=== PATIENT | female | born 1960 | race Caucasian/White ===

== ENCOUNTER → 2017-05-23 | Outpatient (CLI) | payer OTHER ==
[~2017-05-23] MED LIST: ACYCLOVIR 200200 MG PO; ASPIRIN EC81 M1 PO; CLONAZEPAM PO; CO Q-10100 MG PO; ESTRADIOL TRAN1 EAC2 TRANSDERM; FISHOIL PO; GLUCOSAMINE HC500 MG PO; LISINOPRIL10 MG PO; METHADONE HCL 110 M1; METHADONE HCL 110 M1 PO; METHADONE HCL5 MG PO; METOPROLOL SUCC25 M1 PO; NEURONTIN600 MG PO; NUCYNTA50 MG PO; OXYCODONE PO; PERCOCET 10-321 EACH PO; PERCOCET 7.5-31 EACH PO; PROGESTERONE100 MG PO; RED YEAST RICE600 M1 PO; TAPAZOLE5 MG PO; TOPROL XL25 MG PO; VITAMIN B-121000 MCG PO; VITAMIN D1000 UNI1 PO; VITAMIN D400 UNI1 PO; VITAMINC500 PO; VOLTAREN GEL 1100 G1 TOP; VOLTAREN GEL 1100 G2; ZANAFLEX2 M1 PO
--- NOTE | 2017-05-30 07:59 | PAINCON ---
[facility] [address] [place] [address] PAIN MANAGEMENT CONSULTATION Name: MONICA BREWER Room: [facility] DERRELL Robles#: [id number] Admission: 05/23/17 Attend Phys: Lelsie Fairchild Discharge: Date of : 58 Report #: [id number] THIS REPORT FOR: //name// CC: RODNEY Carroll HISTORY OF PRESENT ILLNESS: The patient is a very pleasant 57-year-old female being treated for cervical radiculopathy status post cervical decompressive laminectomy, neuropathic pain requiring complex medication management. Last visit 03/17/2017, we continue the patient on baseline medication. Buccal swab at that time was positive for prescribed medications and no others. The patient is an opiate consent to treat contract patient. The patient is stable on baseline medication including methadone 5 mg 1 in the morning, 2 in the afternoon and 1 at night and Percocet 5/325 up to 4 a day. This is a lower dose from prior opiate load. She is continued on tizanidine 2 mg t.i.d. for spasm. Today, we talked about trying to further wean Percocet. We may consider dropping to a 5/325 at some point. She does note that dropping from 10/325 to 7.5/325 did have a little increasing pain, but she still remains functional. Today, we did note that she has some thyroid fullness. This has been present for a while. She tells me her TSH levels are normal, but with a little fullness in the thyroid and prior history of significant cervical surgeries. We elected to repeat a cervical MRI. Last MRI appears to be about 2009. We reviewed the fact that opiate medications are being used to provide analgesia adequate to support activities of daily living, not attempting to achieve a specific pain score on the 0-10 Visual Analog Scale. The current opiate medications are providing sufficient analgesia to allow the patient to participate in activities of daily living. The patient is not exhibiting any aberrant behavior suggestive of drug diversion. The patient is not having any adverse reactions to medications. The patient is not suffering from daytime somnolence or mental acuity changes. The patient is managing opiate-induced constipation with appropriate tckx-anx-fplxvgd agents and dietary considerations. The patient was counseled on concern for caution with operating a motor vehicle while using opiate medications. A physical exam was performed and the patient's functional status was evaluated. All patients with back pain were advised against the bed rest greater than 4 days and were advised to return to normal activities. Pain score assessment was noted and the treatment plan was reviewed with the patient. All current medications, both prescribed and OTC were reviewed and reconciled on the electronic medical record. Tobacco screening was accomplished and smoking cessation was advised when indicated. BMI was noted and diet/[place] [address] PAIN MANAGEMENT CONSULTATION Name: MONICA BREWER [id number] Admission: 05/23/17 Attend Phys: Leslie Fairchild Discharge: Date of : 58 Report #: [id number] modification was recommended for all patients following outside normal parameters. I reviewed with the patient today their responsibilities to safeguard prescription medications, reviewed their responsibility to utilize medications only as prescribed by the physician. They are to seek and receive pain medications only from 1 physician group ( [facility]). They are to use 1 pharmacy and keep the clinic informed if they change pharmacies. Their responsibilities include making followup visits in a timely fashion and to avoid abrupt discontinuation of medication usage. Their responsibilities further include bringing their medications (bottles from the pharmacy with residual pills) to the visit for possible confirmation of pill counts and the patient understands it is their responsibility to submit to random drug screens to ensure both that the medications prescribed are present, and that no other controlled substances are present. All prescriptions provided today were generated electronically. ASSESSMENT: Symptomatic cervical radicular status post decompressive laminectomy, chronic pain syndrome requiring complex medication management, neuropathic pain and dysphagia. RECOMMENDATIONS: Continue current medication unchanged. MRI of the cervical spine. If the MRI is unremarkable, we may consider ultrasound of the thyroid. Discharged in good and stable condition. <ELECTRONICALLY SIGNED> By: Ran Carroll DO 05/30/17 0759 1431 [id number] Carroll DO /nt
== END ==
LOC: M.PC 04:52
DX: M54.12 Radiculopathy, cervical region (principal); G89.29 Other chronic pain; R13.10 Dysphagia, unspecified; Z79.899 Other long term (current) drug therapy

== ENCOUNTER → 2017-08-15 | Outpatient (CLI) | payer OTHER ==
--- NOTE | 2017-08-16 07:13 | PAINCON ---
[address] [address] PAIN MANAGEMENT CONSULTATION Name: MONICA BREWER Room: [facility] DERRELL Robles#: [id number] Admission: 08/15/17 Attend Phys: Leslie Fairchild Discharge: Date of : 58 Report #: [id number] THIS REPORT FOR: //name// CC: RODNEY ZAVALA Physician staff Ran Carroll DATE OF SERVICE: 08/15/2017 The patient is a 57-year-old female, long known to the pain clinic, being treated for symptomatic cervical radiculopathy status post decompressive laminectomy, neuropathic pain requiring complex medication management. Last visit, 05/23/2017, we continued the patient on methadone 5 mg 2 in the morning, 1 in the afternoon, 2 at night; Percocet 7.5/325 one tablet up to 4 times a day. This roughly equates to 145 milligram morphine equivalents. This is lowered from several years ago, in 2013 she was taking methadone 10 mg 4 a day, Percocet 10/325, 135 tablets for 30 days. With this the patient was utilizing 220 milligram morphine equivalent. Again, presently about 145 mg morphine equivalent in total. Last random drug screen, 02/28/2017, was positive for prescribed medications. The patient returns to pain clinic today. 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 She does take care of her who has had a traumatic brain injury. While he is generally physically functional, he does have some psychological issues which requires close care. The patient remains upbeat, rates her pain a 2-3 on VAS. PHYSICAL EXAMINATION: Shows 5 feet 5 inches, 127 pounds female, BMI is 21.2 kg per meter squared, blood pressure 143/73, pulse 70, respirations 16. Upper extremity strength is actually fairly preserved and symmetric, about 4-5 to all muscle groups tested. Has pain a little greater on the right side of the neck. Cervical range of motion is modestly limited, compatible with prior surgeries. Some diffuse tenderness in the right splenius capitis, no discrete trigger points noted. Gait is tandem. No myelopathic symptoms. We reviewed the fact that opiate medications are being used to provide analgesia adequate to support activities of daily living, not attempting to achieve a specific pain score on the 0-10 Visual Analog Scale. The current opiate medications are providing sufficient analgesia to allow the patient to participate in activities of daily living. The patient is not exhibiting any aberrant behavior suggestive of drug diversion. The patient is not having any adverse reactions to medications. The patient is [place] [address] PAIN MANAGEMENT CONSULTATION Name: MONICA BREWER [id number] Admission: 08/15/17 Attend Phys: Leslie Fairchild Discharge: Date of : 58 Report #: [id number] somnolence or mental acuity changes. The patient is managing opiate-induced constipation with appropriate cpij-ipj-zzepvle agents and dietary considerations. The patient was counseled on concern for caution with operating a motor vehicle while using opiate medications. A physical exam was performed and the patient's functional status was evaluated. All patients with back pain were advised against the bed rest greater than 4 days and were advised to return to normal activities. Pain score assessment was noted and the treatment plan was reviewed with the patient. All current medications, both prescribed and OTC were reviewed and reconciled on the electronic medical record. Tobacco screening was accomplished and smoking cessation was advised when indicated. BMI was noted and diet/exercise modification was recommended for all patients following outside normal parameters. I reviewed with the patient today their responsibilities to safeguard prescription medications, reviewed their responsibility to utilize medications only as prescribed by the physician. They are to seek and receive pain medications only from 1 physician group ( [facility]). They are to use 1 pharmacy and keep the clinic informed if they change pharmacies. Their responsibilities include making followup visits in a timely fashion and to avoid abrupt discontinuation of medication usage. Their responsibilities further include bringing their medications (bottles from the pharmacy with residual pills) to the visit for possible confirmation of pill counts and the patient understands it is their responsibility to submit to random drug screens to ensure both that the medications prescribed are present, and that no other controlled substances are present. All prescriptions provided today were generated electronically. ASSESSMENT: Symptomatic cervical radiculopathy status post decompressive laminectomy, neuropathic pain requiring complex medication management, stable on baseline medication. RECOMMENDATION: Continue methadone 5 mg 2 in the morning, 1 at noon, and 2 at night. Encouraged the patient to try and wean this to 4 a day, 1 in the morning, 1 at noon, and 2 at night. Continue tizanidine 2 mg t.i.d. for spasm, hydrocodone 7.5/325 one tablet 3-4 times a day, limit 100 tablets for 30 days. I did review MRI of the cervical spine, somewhat dated from 2014, does note to the ACDF at C3 through C7 with right neuroforaminal narrowing at C6-C7. She may benefit from cervical epidural injection if symptoms become problematic. She has done well with occasional epidural injections over time. [address] [place] [address] PAIN MANAGEMENT CONSULTATION Name: SHIRLEY ANTONIAMONICA Room: [facility] DERRELL Robles#: [id number] Admission: 08/15/17 Attend Phys: Leslie Fairchild Discharge: Date of : 58 Report #: [id number] Discharged in good and stable condition. Follow up in [address] Quinn Beltran. <ELECTRONICALLY SIGNED> By: Ran Carroll DO 08/16/17 0713 1450 [id number] Carroll DO /nt
== END ==
LOC: M.PC 04:04
DX: M54.12 Radiculopathy, cervical region (principal); Z79.899 Other long term (current) drug therapy

== ENCOUNTER → 2017-11-06 | Outpatient (CLI) | payer OTHER ==
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
== END ==
LOC: M.PC 04:44
DX: M54.12 Radiculopathy, cervical region (principal); M54.16 Radiculopathy, lumbar region; I10 Essential (primary) hypertension; K21.9 Gastro-esophageal reflux disease without esophagitis; G89.4 Chronic pain syndrome; M79.1 Myalgia; E05.00 Thyrotoxicosis with diffuse goiter without thyrotoxic crisis or storm; L30.9 Dermatitis, unspecified; R13.10 Dysphagia, unspecified

== ENCOUNTER → 2018-01-29 | Outpatient (CLI) | payer OTHER ==
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
== END ==
LOC: M.PC 04:35
DX: M54.12 Radiculopathy, cervical region (principal); M43.22 Fusion of spine, cervical region; M54.16 Radiculopathy, lumbar region; G89.4 Chronic pain syndrome; K21.9 Gastro-esophageal reflux disease without esophagitis; I10 Essential (primary) hypertension; R13.10 Dysphagia, unspecified; G62.9 Polyneuropathy, unspecified; L30.9 Dermatitis, unspecified; E05.00 Thyrotoxicosis with diffuse goiter without thyrotoxic crisis or storm; M79.18 Myalgia, other site

== ENCOUNTER → 2018-04-23 | Outpatient (CLI) | payer OTHER ==
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
== END ==
LOC: M.PC 08:30
DX: M54.12 Radiculopathy, cervical region (principal); M54.16 Radiculopathy, lumbar region; R13.10 Dysphagia, unspecified; M19.90 Unspecified osteoarthritis, unspecified site; I10 Essential (primary) hypertension; K21.9 Gastro-esophageal reflux disease without esophagitis; G89.4 Chronic pain syndrome; E05.00 Thyrotoxicosis with diffuse goiter without thyrotoxic crisis or storm; L30.9 Dermatitis, unspecified; J18.9 Pneumonia, unspecified organism; Z79.899 Other long term (current) drug therapy

== ENCOUNTER → 2018-07-23 | Outpatient (CLI) | payer OTHER ==
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
== END ==
LOC: M.PC 04:36
DX: M54.12 Radiculopathy, cervical region (principal); M54.16 Radiculopathy, lumbar region; M79.10 Myalgia, unspecified site; M19.90 Unspecified osteoarthritis, unspecified site; G89.4 Chronic pain syndrome; G62.9 Polyneuropathy, unspecified; I10 Essential (primary) hypertension; K21.9 Gastro-esophageal reflux disease without esophagitis; E05.00 Thyrotoxicosis with diffuse goiter without thyrotoxic crisis or storm; L30.9 Dermatitis, unspecified; R13.10 Dysphagia, unspecified; Z79.899 Other long term (current) drug therapy; Z87.01 Personal history of pneumonia (recurrent)

== ENCOUNTER → 2018-10-15 | Outpatient (CLI) | payer OTHER ==
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
== END ==
LOC: M.PC 05:03
DX: M54.12 Radiculopathy, cervical region (principal); M43.22 Fusion of spine, cervical region; M54.16 Radiculopathy, lumbar region; M19.90 Unspecified osteoarthritis, unspecified site; G62.9 Polyneuropathy, unspecified; G89.4 Chronic pain syndrome; M79.18 Myalgia, other site; R13.10 Dysphagia, unspecified; I10 Essential (primary) hypertension; K21.9 Gastro-esophageal reflux disease without esophagitis; E05.00 Thyrotoxicosis with diffuse goiter without thyrotoxic crisis or storm; L30.9 Dermatitis, unspecified; Z79.899 Other long term (current) drug therapy; Z87.01 Personal history of pneumonia (recurrent)

== ENCOUNTER → 2019-01-07 | Outpatient (CLI) | payer OTHER ==
--- NOTE | 2019-01-08 09:09 | PAINCON ---
[address] [address] PAIN MANAGEMENT CONSULTATION Name: MONICA BREWER Room: [facility] DERRELL Robles#: [id number] Admission: 01/07/19 Attend Phys: Ria Beltran MD Discharge: Date of : 58 Report #: [id number] THIS REPORT FOR: //name// CC: RODNEY Beltran DATE OF SERVICE: 01/07/2019 CHIEF COMPLAINT: Here for medication renewal. HISTORY: The patient is a 58-year-old female who has been followed in the pain clinic. As you recall, she has a history of cervical radicular problems. She has pain and is status post cervical decompression and fusion. Rates her pain today as 4/10. It involves her neck and middle back. It has been problematic for years. She feels reasonably well. She is not having a headache today. She has had headaches in the base of her skull. This oftentimes happens 4-5 times per week. She has had evaluation by her primary. She has had Graves' disease. She has been started on a medication for this. Notes that the pain is worse with activity as well as with the change in the weather. Rates it as a 4/10 today. Her has a traumatic brain injury. She continues to take care of him. 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 Generally things are going reasonably well. She has returned today for renewal of her medications. ALLERGIES: PENICILLIN, IV CONTRAST DYE. CURRENT MEDICATIONS: Vitamin C, vitamin D 1000 units, clonidine 2 mg at bedtime, vitamin B12 1000 mg, Voltaren gel 100 mg applied q.i.d., fish oil, 1000 mg, methadone 5 mg, total of 4 tablets daily, Tapazole 2.5 mg every other day, metoprolol XL 25 mg b.i.d., Percocet 7.5 mg 4 tablets daily, Nucynta 50 mg, Zanaflex 2 mg t.i.d., CoQ10. PAIN CLINIC AND PQRS: 1. The patient has some history of osteoarthritic changes in her neck. She has had four surgeries on her neck. She is not being treated for rheumatoid arthritis. 2. Height 5 feet 6 inches, weight 137 pounds, BMI is 21.8. 3. VITAL SIGNS: Blood pressure 133/72, heart rate 70, respiratory rate 18, room air saturation is 97%, temperature 98.3. 4. Pain intensity 4/10. 5. Fall history: The patient has not fallen in the last 3 months. 6. Blood thinner. The patient is not on a blood thinning medication. 7. Hypertension. The patient is being treated for hypertension. 8. Opioids greater than 6 weeks. The patient received medication from [facility], the pain clinic. 9. Risk assessment tool, low for opioid use. 10. [place] [address] PAIN MANAGEMENT CONSULTATION Name: MONICA BREWER [facility] [id number] Admission: 01/07/19 Attend Phys: Ria Beltran MD Discharge: Date of : 58 Report #: [id number] 11. Recreational drug use. The patient denies. 12. Tobacco: The patient denies. 13. Alcohol. The patient denies use of alcoholic beverages. PHYSICAL EXAMINATION: GENERAL: The patient is a well-developed, well-nourished white female. Appears her stated age. She is alert and oriented x 3. Her affect is appropriate. Speech is fluent. HEENT: Normocephalic, atraumatic. Extraocular eye muscles intact. Sclerae nonicteric. Mucous membranes are moist. NECK: Without adenopathy or JVD limited range of motion given for past surgical histories in the cervical area. EXTREMITIES: Upper extremity muscle strength judged to be 5-/5 for the major muscle groups in the upper extremity. The patient has some deep tendon reflexes +1 bilaterally at the biceps. HEART: Regular rate. S1, S2. LUNGS: Clear to auscultation without rales or rhonchi. ABDOMEN: Nontender. Bowel sounds present. MUSCULOSKELETAL: Without significant scoliosis, kyphosis or lordosis. Lower extremity muscle strength judged to be 5/5 for the major muscle groups in the lower extremity. IMPRESSION: 1. Cervical radiculopathy, status post for decompression surgeries with fusion. 2. Dysphagia. 3. History of aspiration pneumonia. 4. Lumbar radiculopathy. 5. Myofascial pain. 6. Degenerative joint disease. 7. Neuropathic pain. 8. Hypertension. 9. Gastroesophageal reflux. 10. Eczema. 11. Chronic pain syndrome. 12. Graves' disease. RECOMMENDATIONS: We discussed treatment options with the patient. At this juncture, we will continue with her medications. She has been reevaluated by her physician in regards to her Graves' disease. She feels that the opioid medications continue to be helpful. We have discussed the opioid use at this juncture. We will consider [place] [address] PAIN MANAGEMENT CONSULTATION Name: MONICA BREWER Room: [facility] DERRELL Howard.#: [id number] Admission: 01/07/19 Attend Phys: Ria Beltran MD Discharge: Date of : 58 Report #: [id number] We would like to thank you for letting us participate in her care. We hope she continues to improve. <ELECTRONICALLY SIGNED> By: Ria Beltran MD 01/08/19 0909 [id number] Beltran MD /nt
== END ==
LOC: M.PC 05:23
DX: M54.12 Radiculopathy, cervical region (principal); R13.10 Dysphagia, unspecified; M54.16 Radiculopathy, lumbar region; M79.18 Myalgia, other site; M19.90 Unspecified osteoarthritis, unspecified site; K21.9 Gastro-esophageal reflux disease without esophagitis; I10 Essential (primary) hypertension; E05.00 Thyrotoxicosis with diffuse goiter without thyrotoxic crisis or storm; G89.4 Chronic pain syndrome; Z88.0 Allergy status to penicillin; Z88.8 Allergy status to other drugs, medicaments and biological substances; Z79.899 Other long term (current) drug therapy

== ENCOUNTER → 2019-04-01 | Outpatient (CLI) | payer OTHER ==
--- NOTE | 2019-04-09 16:39 | PAINCON ---
[address] [address] PAIN MANAGEMENT CONSULTATION Name: MONICA BREWER [facility] DONALJim Robles#: [id number] Admission: 04/01/19 Attend Phys: Ria Beltran MD Discharge: Date of : 58 Report #: [id number] THIS REPORT FOR: //name// CC: ASHLEY Beltran DATE OF SERVICE: 04/01/2019 PRIMARY CARE PHYSICIAN: Dr. Ashley Peñaloza CHIEF COMPLAINT: "I have gone down on the medicine and it is still working pretty well. HISTORY: The patient is a 59-year-old female who has been followed in the pain clinic. As you recall, she has a history of cervical radicular problems. She is status post cervical decompression and fusion. She rates her pain today as a 2/10. She has had no complications. We have discussed decreasing her methadone by 5 mg daily. She has done and found that things have worked out reasonably well. She has returned today for renewal of her medications. She almost fell and felt a jerk in her body, but has had no problems with increased pain. She feels that her pain is about 50% improved with the use of medications. She notes that use of heat, medications, as well as some cold can be helpful. She has returned today for renewal of her medications. ALLERGIES: PENICILLIN AND IV CONTRAST. CURRENT MEDICATIONS: Vitamin C, vitamin D 1000 units, clonidine 2 mg at bedtime, vitamin B12 1000 mg, Voltaren gel 100 mg applied q.i.d., fish oil 100 mg, methadone 5 mg a.m. and 10 mg p.m., Tapazole 2.5 mg every other day, metoprolol XL 25 mg b.i.d., Percocet 7.5 mg 4 tablets daily, Nucynta 50 mg, Zanaflex 2 mg t.i.d., and CoQ10. PAIN CLINIC ASSESSMENT AND PQRS: 1. The patient does have some history of osteoarthritic changes in her neck. She has had four surgeries on her neck. She is not being treated for rheumatoid arthritis. 2. Height 5 feet 6 inches, weight 135 pounds, and BMI is 21. 3. Vital Signs: Blood pressure 137/72, heart rate 67, respiratory rate 16, room air saturation 98%, and temperature 98.3. 4. Pain intensity 2/10. 5. Fall history: The patient has not fallen in the last 3 months. 6. Blood thinner. The patient is not on a blood thinning medication. 7. Hypertension. The patient is being treated for hypertension. 8. Opioids greater than 6 weeks. The patient received medication from [facility] [place] [address] PAIN MANAGEMENT CONSULTATION Name: MONICA BREWER Room: [facility]#: [id number] Admission: 04/01/19 Attend Phys: Ria Beltran MD Discharge: Date of : 58 Report #: [id number] 9. Risk assessment tool, low for opioid use. 10. Functional assessment tool reviewed. 11. Recreational drug use: The patient denies. 12. Tobacco: The patient denies. 13. Alcohol: The patient denies use of alcoholic beverages. PHYSICAL EXAMINATION: GENERAL: The patient is a well-developed and well-nourished white female. Appears her stated age. She is alert and oriented x 3. Her affect is appropriate. Speech is fluent. HEENT: Normocephalic and atraumatic. Extraocular eye muscles intact. Sclerae nonicteric. Mucous membranes are moist. NECK: Without adenopathy. Some decreased range of motion, status post past surgical cervical history. EXTREMITIES: Upper extremity muscle strength judged to be 5-/5 for the major muscle groups in the upper extremities. The patient has some deep tendon reflexes +1 bilaterally. HEART: Regular rate. LUNGS: Clear to auscultation without rhonchi. ABDOMEN: Nontender. MUSCULOSKELETAL: Without significant scoliosis, kyphosis, or lordosis. Lower extremity muscle strength judged to be 5/5 for the major muscle groups in the lower extremities. IMPRESSION: 1. Cervical radiculopathy, status post surgical decompression with fusion. 2. Dysphagia. 3. History of aspiration pneumonia. 4. Lumbar radiculopathy. 5. Myofascial pain. 6. Degenerative joint disease. 7. Neuropathy/neuropathic pain. 8. Hypertension. 9. Gastroesophageal reflux. 10. Eczema. 11. Chronic pain syndrome. 12. Graves' disease. RECOMMENDATIONS: We discussed treatment options with the patient. At this juncture, we will continue with her medications. She has decreased her morphine equivalents. She decreased methadone by 5 mg daily. Overall, she feels that things are going reasonably well. Her pain today was 2/10. She reports that her pain is about 50% improved. She will continue with her medications. A script has been rewritten. She will call us if she has any concerns. The patient is aware that opioid medications can over time become less effective secondary to development of tolerance. She did not show any significant problem [address] [address] PAIN MANAGEMENT CONSULTATION Name: MONICA BREWER Room: [facility]#: [id number] Admission: 04/01/19 Attend Phys: Ria Beltran MD Discharge: Date of : 58 Report #: [id number] with tolerance. She does not have any complaints of withdrawal since she has decreased her methadone medication. We will continue with her medications. A script for her medication of methadone 5 mg 1 in the morning and 2 at night has been written. The patient will also continue with Zanaflex for muscle spasms. We would like to thank you for letting us participate in her care. We hope she continues to improve. <ELECTRONICALLY SIGNED> By: Ria Beltran MD 04/09/19 1639 [id number]. Quinn Beltran MD /nt
== END ==
LOC: M.PC 07:58
DX: M54.12 Radiculopathy, cervical region (principal); M54.16 Radiculopathy, lumbar region; R13.0 Aphagia; M79.18 Myalgia, other site; M19.90 Unspecified osteoarthritis, unspecified site; G62.9 Polyneuropathy, unspecified; I10 Essential (primary) hypertension; K21.9 Gastro-esophageal reflux disease without esophagitis; G89.4 Chronic pain syndrome

== ENCOUNTER → 2019-06-24 | Outpatient (CLI) | payer OTHER ==
--- NOTE | 2019-06-25 08:28 | PAINCON ---
[facility] [address] [place] [address] PAIN MANAGEMENT CONSULTATION Name: MONICA BREWER Room: [facility] No.Nely.#: [id number] Admission: 06/24/19 Attend Phys: Ria Beltran MD Discharge: Date of : 58 Report #: [id number] THIS REPORT FOR: //name// cc: RODNEY ZAVALA DO RODNEY ZAVALA DO ~ THIS REPORT FOR: //name// CC: RODNEY Beltran DATE OF SERVICE: 06/24/2019 CHIEF COMPLAINT: Cervical radicular pain. HISTORY: The patient is a 59-year-old female who has been followed in the Pain Clinic for quite some time. She suffers from neck, upper and mid back pain. She has returned today for renewal of her medications. She feels that the medications continue to be helpful. She rates her pain as a 3/10. She has been unable to work secondary to COVID-19. She is practicing social distancing. Because of increased pain involves her back, neck and mid back area, activity exacerbates her discomfort. As you may recall, she is status post cervical decompression and fusion. She has returned today for renewal of her medication. ALLERGIES: PENICILLIN, IV CONTRAST. CURRENT MEDICATIONS: Vitamin C, vitamin D 1000 units, clonidine 2 mg at bedtime, vitamin B12 1000 mg, Voltaren gel 100 mg applied q.i.d., fish oil 100 mg, methadone 5 mg, 10 mg at bedtime, Tapazole 2.5 mg every other day, metoprolol XL 25 mg b.i.d., Percocet 7.5 mg 4 tablets daily, Nucynta 50 mg, Zanaflex 2 mg t.i.d., and CoQ10. PAIN CLINIC ASSESSMENT AND PQRS: 1. The patient has had osteoarthritic changes in her neck. She has had 4 surgeries on her neck. She is not being treated for rheumatoid arthritis. 2. Height 5 feet 6 inches, weight 134 pounds, BMI is 22.2. 3. Vital Signs: Blood pressure 127/70, heart rate 61, respiratory rate 16, room air saturation 97%, and temperature 98.7. 4. Pain intensity 05/26. 5. Fall history: The patient has not fallen in the last 3 months. 6. Blood thinner. The patient is not on a blood thinning medication. 7. Hypertension. The patient is being treated for hypertension. 8. Opioids greater than 6 weeks. The patient received medication from the Pain Clinic. 9. Risk assessment tool, low for opioid use. 10. Functional assessment tool has been reviewed. 11. Tobacco: [place] [address] PAIN MANAGEMENT CONSULTATION Name: MONICA BREWER Room: [facility]#: [id number] Admission: 06/24/19 Attend Phys: Ria Beltran MD Discharge: Date of : 58 Report #: [id number] 12. Alcohol: The patient denies. PHYSICAL EXAMINATION: GENERAL: The patient is a well-developed, well-nourished white female. Appears her stated age. She is alert and oriented x 3. Her affect is appropriate. Speech is fluent. HEENT: Normocephalic, atraumatic. Extraocular eye muscles intact. Sclerae nonicteric. Mucous membranes are moist. NECK: Without adenopathy. Some decreased range of motion, status post cervical history. EXTREMITIES: Upper extremity muscle strength judged to be 5-/5 for the major muscle groups in the upper extremity. The patient complains of some pain in the upper neck area as well as in the mid thoracic area. HEART: Regular rate. LUNGS: Generally clear to auscultation. ABDOMEN: Nontender. MUSCULOSKELETAL: Without significant scoliosis, kyphosis or lordosis. Lower extremity muscle strength judged to be 5/5 for the major muscle groups in the lower extremity. IMPRESSION: 1. Cervical radiculopathy, status post surgical decompression with fusion. 2. Dysphagia. 3. History of aspiration pneumonia. 4. Lumbar radiculopathy. 5. Myofascial pain. 6. Degenerative joint disease. 7. Neuropathy/neuropathic pain. 8. Hypertension. 9. Gastroesophageal reflux. 10. Eczema. 11. Chronic pain syndrome. 12. Graves' disease. RECOMMENDATIONS: We discussed treatment options with the patient. At this juncture, we will continue with her medications. She feels that the medications continue to be helpful. She stays as engaged as possible. Does note some increased pain in the neck and mid back area. She has taken her medications as prescribed. She feels that the muscle relaxant, tizanidine is beneficial. We will continue with that medication. She also feels that the methadone is helpful. She will continue with methadone 5 mg p.o. t.i.d. as directed. She will also continue with Percocet 7.5 mg, total of 4 tablets per day. The patient will also continue with Voltaren gel to the appropriate location in the upper extremity 4 times daily. A script for these medications has been written. The patient is aware that the opioid medications can become less effective over time secondary to development of tolerance. She is aware [place] [address] PAIN MANAGEMENT CONSULTATION Name: MONICA BREWER Room: [facility]#: [id number] Admission: 06/24/19 Attend Phys: Ria Beltran MD Discharge: Date of : 58 Report #: [id number] develop ____ with these medications. She has not shown any signs of addiction. She keeps her medications in the guarded area. She will call us if she has any concerns. The patient is trying to stay free of the COVID-19 virus. She states that she is staying at home as prescribed by the CDC. <ELECTRONICALLY SIGNED> By: Ria Beltran MD 06/25/19 0828 [id number]. Quinn Beltran MD /nt
== END ==
LOC: M.PC 04:54
DX: M54.12 Radiculopathy, cervical region (principal); R13.10 Dysphagia, unspecified; M54.16 Radiculopathy, lumbar region; M79.18 Myalgia, other site; M19.90 Unspecified osteoarthritis, unspecified site; K21.9 Gastro-esophageal reflux disease without esophagitis; R60.0 Localized edema; G89.4 Chronic pain syndrome; E05.00 Thyrotoxicosis with diffuse goiter without thyrotoxic crisis or storm; Z88.0 Allergy status to penicillin; Z88.8 Allergy status to other drugs, medicaments and biological substances; Z79.899 Other long term (current) drug therapy

== ENCOUNTER → 2019-09-16 | Outpatient (CLI) | payer OTHER ==
--- NOTE | 2019-09-25 15:40 | PAINCON ---
[facility] [address] [place] [address] PAIN MANAGEMENT CONSULTATION Name: MONICA BREWER Room: [facility] DERRELL SarabiaSonja.#: [id number] Admission: 09/16/19 Attend Phys: Ria Beltran MD Discharge: Date of : 58 Report #: [id number] THIS REPORT FOR: //name// cc: RODNEY ZAVALA DO RODNEY ZAVALA DO ~ THIS REPORT FOR: //name// CC: RODNEY Beltran DATE OF SERVICE: 09/16/2019 CHIEF COMPLAINT: Medications are still helpful. HISTORY: The patient is a 59-year-old female who has been followed in the pain clinic. As you may recall, she has chronic pain involving her neck. She has had some pain in the mid back area as well. 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 She rates her pain today as 2/10. She continues to practice social distancing. She has undergone cervical decompression and fusion. She feels her medications are working relatively well and has returned to the pain clinic for renewal of them. ALLERGIES: PENICILLIN, IV CONTRAST. CURRENT MEDICATIONS: Vitamin C, vitamin D 1000 units, clonidine 2 mg, vitamin B12 1000 mg, Voltaren gel applied q.i.d., fish oil 100 mg, methadone 5 mg and 10 mg at bedtime, Tapazole 2.5 mg every other day, metoprolol XL 25 mg b.i.d., Percocet 7.5 mg 4 tablets daily, Nucynta 50 mg, Zanaflex 2 mg t.i.d., and CoQ10. PAIN CLINIC ASSESSMENT AND PQRS: 1. The patient has some osteoarthritic changes in her neck. She has had four neck surgeries. She is not being treated for rheumatoid arthritis. 2. Height 5 feet 6 inches, weight 137 pounds, BMI is 23. 3. Vital signs: Blood pressure 153/86, heart rate 69, respiratory rate 16, room air saturation 98%, temperature 98.7. 4. Pain intensity 04/28. 5. Fall history: The patient has not fallen in the last 3 months. 6. Blood thinner. The patient is not on a blood thinning medication. 7. Hypertension. The patient is being treated for hypertension. 8. Opioids greater than 6 weeks. The patient receives medication from one source, the pain clinic. 9. Risk assessment tool, low for opioid use. 10. Functional assessment tool has been reviewed. 11. Tobacco: The patient denies use of tobacco. 12. Alcohol. The [place] [address] PAIN MANAGEMENT CONSULTATION Name: MONICA BREWER Room: [facility]#: [id number] Admission: 09/16/19 Attend Phys: Ria Beltran MD Discharge: Date of : 58 Report #: [id number] PHYSICAL EXAMINATION: GENERAL: The patient is a well-developed, well-nourished white female. Appears her stated age. She is alert and oriented x 3. Her affect is appropriate. Speech is fluent. HEENT: Normocephalic, atraumatic. Extraocular eye muscles intact. Sclerae nonicteric. Mucous membranes are moist. NECK: Without adenopathy. The patient has some decreased motion in her neck and has status post four cervical interventions. EXTREMITIES: Upper extremity muscle strength judged to be 5-/5 for the major muscle groups in the upper extremity. The patient does complain of some pain in her neck as well as some pain in the mid back area. HEART: Regular rate. LUNGS: Generally clear to auscultation. ABDOMEN: Nontender. MUSCULOSKELETAL: The patient without scoliosis, kyphosis, or lordosis. Muscle strength in the lower extremity, judged to be 5/5 for the major muscle groups in the lower extremity. IMPRESSION: 1. Cervical radiculopathy, status post cervical decompression and fusion - four surgical histories. 2. Dysphagia. 3. History of aspiration pneumonia. 4. Lumbar radiculopathy. 5. Myofascial pain. 6. Degenerative joint disease. 7. Neuropathy/neuropathic pain. 8. Hypertension. 9. Gastroesophageal reflux. 10. Eczema. 11. Chronic pain syndrome. 12. Graves' disease. RECOMMENDATIONS: We discussed treatment options with the patient. At this juncture, she feels the medications are working relatively well. She is not having any significant problems. She has returned to work. They have moved to stage 2 of the pandemic and this enables her to work in contact with people. Overall, she feels that things are going reasonably well. She finds that the Percocet medication in conjunction with methadone are beneficial. She finds the Voltaren gel helps with upper extremity pain by applying it 4 times daily. A script for her medications have been renewed. She will call us if [place] [address] PAIN MANAGEMENT CONSULTATION Name: MONICA BREWER Room: [facility]#: [id number] Admission: 09/16/19 Attend Phys: Ria Beltran MD Discharge: Date of : 58 Report #: [id number] We would like to thank you for letting us participate in her care. We hope she continues to improve. <ELECTRONICALLY SIGNED> By: Ria Beltran MD 09/25/19 1540 1234 [id number]. Quinn Beltran MD /nt
== END ==
LOC: M.PC 04:41
PROVIDERS: ATTEND Anesthesiology Pain Medicine
DX: M54.12 Radiculopathy, cervical region (principal); G89.4 Chronic pain syndrome; I10 Essential (primary) hypertension; K21.9 Gastro-esophageal reflux disease without esophagitis; M19.90 Unspecified osteoarthritis, unspecified site; M79.10 Myalgia, unspecified site; M54.16 Radiculopathy, lumbar region; R13.10 Dysphagia, unspecified; L30.9 Dermatitis, unspecified; F11.20 Opioid dependence, uncomplicated; Z87.01 Personal history of pneumonia (recurrent); Z79.899 Other long term (current) drug therapy

== ENCOUNTER → 2019-12-09 | Outpatient (CLI) | payer OTHER ==
--- NOTE | 2019-12-11 08:38 | PAINCON ---
[address] [address] PAIN MANAGEMENT CONSULTATION Name: MONICA BREWER [facility] [id number] Admission: 12/09/19 Attend Phys: Ria Beltran MD Discharge: Date of : 58 Report #: [id number] THIS REPORT FOR: //name// cc: RODNEY ZAVALA DO RODNEY ZAVALA DO ~ THIS REPORT FOR: //name// CC: RODNEY Beltran DATE OF SERVICE: 12/09/2019 CHIEF COMPLAINT: Here for medication renewal. HISTORY: The patient is a 59-year-old female who has been followed in the pain clinic because of chronic pain involving her neck. She also has pain in the mid back area as well. She rates her pain today as a 2/10. She feels her medications are working reasonably well. She has had no complications from their use. Does note that activity can exacerbate her discomfort. 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 She is trying to practice social distancing and uses the appropriate PPE. She has returned today for renewal of her medications. She feels that the tizanidine continues to be helpful. She rates her pain as reasonably well controlled. ALLERGIES: PENICILLIN, IV CONTRAST. CURRENT MEDICATIONS: Vitamin C, vitamin D 1000 units, clonidine 2 mg, vitamin B12 1000 mg, Voltaren gel applied q.i.d. p.r.n., fish oil 1000 mg, methadone 10 mg at bedtime, Tapazole 2.5 mg every other day, metoprolol XL 25 mg b.i.d., Percocet 7.5 mg 4 tablets daily, Nucynta 50 mg, Zanaflex 2 mg t.i.d., CoQ10. PAIN CLINIC ASSESSMENT AND PQRS: 1. The patient has some osteoarthritic changes in her neck. She has had four neck surgeries. She is not being treated for rheumatoid arthritis. 2. Height 5 feet 6 inches, weight 140 pounds, BMI is 23. 3. Vital Signs: Blood pressure 142/84, heart rate 72, respiratory rate 18, room air saturation 95%, temperature 97.5. 4. Pain intensity 04/28. 5. Fall history: The patient has not fallen in the last 3 months. 6. Blood thinner. The patient is not on a blood thinning medication. 7. Hypertension. The patient is being treated for hypertension. 8. Opioids greater than 6 weeks. The patient received medication from the pain clinic. 9. Risk assessment tool, low for opioid use. 10. Functional assessment tool, reviewed. 11. Tobacco: [place] [address] PAIN MANAGEMENT CONSULTATION Name: MONICA BREWER Room: [facility]#: [id number] Admission: 12/09/19 Attend Phys: Ria Beltran MD Discharge: Date of : 58 Report #: [id number] 12. Alcohol: The patient denies. PHYSICAL EXAMINATION: GENERAL: The patient is a well-developed, well-nourished white female. Appears her stated age. She is alert and oriented x 3. Her affect is appropriate. Speech is fluent. HEENT: Normocephalic, atraumatic. Extraocular eye muscles intact. Sclerae nonicteric. Mucous membranes are moist. NECK: Without adenopathy or JVD. The patient did note some decrease in motion secondary to her surgeries on 4 occasions. EXTREMITIES: Upper extremity muscle strength judged to be 5-/5 for the major muscle groups in the upper extremity. The patient has some complaint of pain and discomfort in the neck and trapezius area and mid portion of her back. HEART: Regular rate. LUNGS: Generally clear to auscultation. ABDOMEN: Nontender. MUSCULOSKELETAL: The patient without scoliosis, kyphosis or lordosis. Muscle strength in the lower extremities judged to be 5/5 for the major muscle groups in the lower extremity. IMPRESSION: 1. Cervical radiculopathy, status post cervical decompression and fusion on 4 occasions. 2. Dysphagia. 3. History of aspiration pneumonia. 4. Lumbar radiculopathy. 5. Myofascial pain. 6. Degenerative joint disease. 7. Neuropathy/neuropathic pain. 8. Hypertension. 9. Gastroesophageal reflux. 10. Eczema. 11. Chronic pain syndrome. 12. Graves' disease. RECOMMENDATIONS: We discussed treatment options with the patient. At this juncture, we will continue with her medications. 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 She is not having any problems with these medications. She keeps her medications in a guarded area. She will call us if she has any concerns. We have discussed the problems with opioid medications. They can become less effective as the time goes on because of development of tolerance. We have discussed the problems with some patients who become addicted to the medication. They have on occasion as a result of over dosing with medications. [address] [address] PAIN MANAGEMENT CONSULTATION Name: MONICA BREWER Room: [facility] DERRELL Howard.#: [id number] Admission: 12/09/19 Attend Phys: Ria Beltran MD Discharge: Date of : 58 Report #: [id number] We would like to thank you for letting us participate in her care. We hope she continues to improve. <ELECTRONICALLY SIGNED> By: Ria Beltran MD 12/11/19 0838 1020 [id number]. Quinn Beltran MD /nt
== END ==
LOC: M.PC 08:17
PROVIDERS: ATTEND Anesthesiology Pain Medicine
DX: Z76.0 Encounter for issue of repeat prescription (principal); I10 Essential (primary) hypertension; K21.9 Gastro-esophageal reflux disease without esophagitis; G89.4 Chronic pain syndrome; E05.00 Thyrotoxicosis with diffuse goiter without thyrotoxic crisis or storm; Z98.1 Arthrodesis status; Z79.899 Other long term (current) drug therapy; Z79.891 Long term (current) use of opiate analgesic

== ENCOUNTER → 2020-03-02 | Outpatient (CLI) | payer OTHER | LOC: M.PC 08:10 | PROVIDERS: ATTEND Anesthesiology Pain Medicine | DX: M54.12 Radiculopathy, cervical region (principal); M43.22 Fusion of spine, cervical region; R13.10 Dysphagia, unspecified; M54.16 Radiculopathy, lumbar region; G62.9 Polyneuropathy, unspecified; I10 Essential (primary) hypertension; K21.9 Gastro-esophageal reflux disease without esophagitis; L30.9 Dermatitis, unspecified; G89.4 Chronic pain syndrome; E05.00 Thyrotoxicosis with diffuse goiter without thyrotoxic crisis or storm; Z87.01 Personal history of pneumonia (recurrent); Z88.8 Allergy status to other drugs, medicaments and biological substances; Z79.899 Other long term (current) drug therapy ==

== ENCOUNTER → 2020-05-25 | Outpatient (CLI) | payer OTHER | LOC: M.PC 07:47 | PROVIDERS: ATTEND Anesthesiology Pain Medicine | DX: M54.12 Radiculopathy, cervical region (principal); M43.22 Fusion of spine, cervical region; R13.10 Dysphagia, unspecified; M54.16 Radiculopathy, lumbar region; M79.10 Myalgia, unspecified site; G62.9 Polyneuropathy, unspecified; I10 Essential (primary) hypertension; K21.9 Gastro-esophageal reflux disease without esophagitis; L30.9 Dermatitis, unspecified; G89.4 Chronic pain syndrome; G70.01 Myasthenia gravis with (acute) exacerbation; Z88.8 Allergy status to other drugs, medicaments and biological substances; Z79.899 Other long term (current) drug therapy ==

== ENCOUNTER → 2020-08-17 | Outpatient (CLI) | payer OTHER | LOC: M.PC 07:44 | PROVIDERS: ATTEND Anesthesiology Pain Medicine | DX: M54.12 Radiculopathy, cervical region (principal); R13.10 Dysphagia, unspecified; M54.16 Radiculopathy, lumbar region; M79.10 Myalgia, unspecified site; M19.90 Unspecified osteoarthritis, unspecified site; G62.9 Polyneuropathy, unspecified; I10 Essential (primary) hypertension; K21.9 Gastro-esophageal reflux disease without esophagitis; G89.4 Chronic pain syndrome; E05.00 Thyrotoxicosis with diffuse goiter without thyrotoxic crisis or storm; Z79.891 Long term (current) use of opiate analgesic; Z79.899 Other long term (current) drug therapy; Z88.0 Allergy status to penicillin ==

== ENCOUNTER → 2020-11-09 | Outpatient (CLI) | payer OTHER ==
[~2020-11-09] MED LIST changes: +NARCAN4 MG NARES; +VOLTAREN ARTHRI20 GM TRANSDERM
== END ==
LOC: M.PC 08:05
PROVIDERS: ATTEND Anesthesiology Pain Medicine
DX: M54.12 Radiculopathy, cervical region (principal); R13.10 Dysphagia, unspecified; M54.16 Radiculopathy, lumbar region; M79.10 Myalgia, unspecified site; M19.90 Unspecified osteoarthritis, unspecified site; G62.9 Polyneuropathy, unspecified; I10 Essential (primary) hypertension; K21.9 Gastro-esophageal reflux disease without esophagitis; L30.9 Dermatitis, unspecified; G89.4 Chronic pain syndrome; E05.00 Thyrotoxicosis with diffuse goiter without thyrotoxic crisis or storm

== ENCOUNTER → 2021-02-01 | Outpatient (CLI) | payer OTHER ==
[~2021-02-01] MED LIST changes: +ZESTRIL5 MG PO
== END ==
LOC: M.PC 07:47
PROVIDERS: ATTEND Anesthesiology Pain Medicine
DX: M54.12 Radiculopathy, cervical region (principal); M54.16 Radiculopathy, lumbar region; M79.18 Myalgia, other site; M19.90 Unspecified osteoarthritis, unspecified site; I10 Essential (primary) hypertension; K21.9 Gastro-esophageal reflux disease without esophagitis; L30.9 Dermatitis, unspecified; G89.29 Other chronic pain; E05.00 Thyrotoxicosis with diffuse goiter without thyrotoxic crisis or storm; R13.19 Other dysphagia; Z88.0 Allergy status to penicillin; Z88.8 Allergy status to other drugs, medicaments and biological substances; Z79.899 Other long term (current) drug therapy

== ENCOUNTER → 2021-04-26 | Outpatient (CLI) | payer OTHER ==
[~2021-04-26] MED LIST changes: +KLONOPIN2 MG PO
== END ==
LOC: M.PC 07:51
PROVIDERS: ATTEND Anesthesiology Pain Medicine
DX: M54.12 Radiculopathy, cervical region (principal); M54.16 Radiculopathy, lumbar region; I10 Essential (primary) hypertension; K21.9 Gastro-esophageal reflux disease without esophagitis; G89.4 Chronic pain syndrome; E05.00 Thyrotoxicosis with diffuse goiter without thyrotoxic crisis or storm; M79.18 Myalgia, other site; Z88.0 Allergy status to penicillin; Z88.8 Allergy status to other drugs, medicaments and biological substances; Z79.899 Other long term (current) drug therapy